=== PATIENT | female | born 1945 | race Caucasian/White ===

== ENCOUNTER 2018-03-02 20:27 | Emergency (ER) | payer OTHER, BC ==
[~2018-03-02] VITALS: Ht 152.4 cm; Wt 68.0 kg
--- NOTE | ~2018-03-02 | EKG ---
[address] [place] [address] ELECTROCARDIOGRAM REPORT Name: CRYSTAL KIRBY [facility] [id number] Admission: 03/02/18 Attend Phys: Discharge: 03/02/18 Date of : 45 Report #: [id number] THIS REPORT FOR: //name// [facility]ly [facility] ED Test Date: 2018-03-02 Test Time: 20:40:32 Pat Name: CRYSTAL KIRBY Department: Room: Gender: F Records Analyst: : 1945 Requested By: Teresa Townsend Order Number: [id number] MD: Rio Joseph Measurements Intervals [place] Rate: 71 P: 41 MI: 178 QRS: 53 QRSD: 94 T: 50 QT: 423 QTc: 460 Interpretive Statements Sinus rhythm No significant abnormality No previous ECG available for comparison Electronically Signed On 03-03-2018 8:36:41 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
[2018-03-02 21:07] LABS: ABSOLUTE NEUTROPHILS 11.1 thou/uL (1.4-8.2); BASOPHILS 0.3 % (0.0-2.0); EOSINOPHILS 0.8 % (0.0-3.0); HEMATOCRIT 44.5 % (37.0-47.0); HEMOGLOBIN 14.6 gm/dL (12.0-15.0); LYMPHOCYTES 9.3 % (24.0-44.0); MCH 28.9 pg (26.0-34.0); MCHC 32.8 g/dL (28.0-37.0); MCV 88.2 fL (80.0-100.0); MONOCYTES 6.4 % (1.0-8.0); PLATELET COUNT 360 thou/uL (150-400); POLYS 83.2 % (36.0-66.0); RBC 5.04 mil/uL (4.20-5.00); RDW 13.5 % (10.5-14.5); WBC 13.4 thou/uL (4.0-11.0)
[2018-03-02 21:14] LABS: ANION GAP 8 mmol/L (7-16); BUN 21 mg/dL (7-18); CALCIUM 9.7 mg/dL (8.5-10.1); CHLORIDE 102 mmol/L (98-107); CO2 27 mmol/L (21-32); CREATININE 0.9 mg/dL (0.6-1.0); GLUCOSE 151 mg/dL (74-106); POTASSIUM 4.1 mmol/L (3.5-5.1); SODIUM 137 mmol/L (136-145)
[2018-03-02 21:23] LABS: ALBUMIN 4.4 g/dL (3.4-5.0); DIRECT BILIRUBIN 0.1 mg/dL (<0.1-0.3); LIPASE 136 U/L (73-393); MAGNESIUM 2.2 mg/dL (1.8-2.4); SGOT 27 U/L (15-37); SGPT 26 U/L (30-65); TOTAL BILIRUBIN 0.3 mg/dL (<0.1-1.0); TOTAL PROTEIN 8.2 g/dL (6.4-8.2); TROPONIN-I <0.06 ng/mL (<0.06)
[2018-03-02 22:18] LABS: URINE BILIRUBIN NEGATIVE (Negative); URINE BLOOD 1+ (Negative); URINE CLARITY CLEAR; URINE COLOR YELLOW; URINE GLUCOSE-RANDOM* NEGATIVE (Negative); URINE KETONES 1+ (Negative); URINE LEUKOCYTES TRACE (Negative); URINE NITRITE NEGATIVE (Negative); URINE PROTEIN (DIPSTICK) NEGATIVE (Negative); URINE SPECIFIC GRAVITY 1.025 (1.005-1.035); URINE UROBILINOGEN 0.2 E.U./dl (0.2-1.0)
[2018-03-02] MEDS ORDERED: ONDANSETRON HCL4 M3 PO (22:35)
[2018-03-02 22:52] LABS: BACTERIA 1-9 Few /HPF (None Seen); MUCUS 4-6 Moderate strn/LPF (None Seen); SQUAMOUS 0-3 Few /LPF (0-3); URINE RBC 3-10 Few /HPF (0-2); URINE WBC 0-5 Rare /HPF (0-5)
[2018-03-02 22:53] LABS: CASTS None Seen /LPF (None Seen); CRYSTALS None Seen /LPF (None Seen)
[2018-03-02 23:20] VITALS: BP 131/67
== END 2018-03-02 23:20 | disposition home or self-care (01) ==
LOC: ER 20:27
PROVIDERS: Student in an Organized Health Care Education/Training Program
DX: A08.4 Viral intestinal infection, unspecified (principal); R11.2 Nausea with vomiting, unspecified; E78.00 Pure hypercholesterolemia, unspecified; Z85.3 Personal history of malignant neoplasm of breast; Z90.12 Acquired absence of left breast and nipple